=== PATIENT | female | born 1985 | race Caucasian/White ===

== ENCOUNTER 2020-11-08 13:19 | Outpatient (CLI) | payer SELFPAY ==
[~2020-11-08 13:19] MED LIST: CEFD300C37 PO; HYDR-2214 PO; LACT1CAP35 PO
== END 2020-11-08 23:59 | disposition home or self-care (01) ==
LOC: LAB 13:19
PROVIDERS: ATTEND Physician Assistant
DX: N39.0 Urinary tract infection, site not specified (principal)
CPT/HCPCS: 87086